=== PATIENT | male | born 1980 | race Caucasian/White ===

== ENCOUNTER 2020-07-18 06:54 | Emergency (ER) | payer MEDICARE, OTHER ==
[~2020-07-18 06:54] MED LIST: BLACK CHERRY PO; CLONIDINE HCL0.1 M1 PO; LAMICTAL100 MG PO; LIPITOR20 MG PO; LOPRESSOR50 MG PO; NEURONTIN400 MG PO; NORVASC 5 MG TAB5 MG PO; ORAZINC220 MG PO; PROTONIX40 MG PO; SEROQUEL100 MG PO; VITAMIN D31000 UNI1 PO; ZANTAC150 MG PO; ZITHROMAX250 MG PO
[2020-07-18] MEDS ORDERED: COLCHICINE 0.60.6 MG PO (07:32)
[2020-07-18] MEDS ORDERED: COLCRYS0.6 MG PO (07:35)
== END 2020-07-18 08:04 | disposition home or self-care (01) ==
LOC: ER1 06:54
DX: M10.9 Gout, unspecified (principal); I10 Essential (primary) hypertension; K21.9 Gastro-esophageal reflux disease without esophagitis; F17.290 Nicotine dependence, other tobacco product, uncomplicated
CPT/HCPCS: 96372; 99283; J1885

== ENCOUNTER 2020-10-29 09:38 | Emergency (ER) | payer MEDICARE, OTHER ==
[~2020-10-29 09:38] MED LIST changes: +COLCHICINE 0.60.6 MG PO; +COLCRYS0.6 MG PO
[2020-10-29 11:18] LABS: HEMOGLOBIN 13.3 gm/dl (14.0-17.5); WHITE BLOOD COUNT 12.3 K/UL (4.5-11.0)
[2020-10-29 11:41] LABS: BUN/CREATININE RATIO 18 (0-10)
[2020-10-29] MEDS ORDERED: AZITHROMYCIN250 MG PO (14:16)
[2020-10-29] MEDS ORDERED: OMNICEF 300 MG300 MG PO (14:16)
[2020-10-29] MEDS ORDERED: VENTOLIN HFA 66.7 GM INH (14:19)
== END 2020-10-29 15:53 | disposition home or self-care (01) ==
LOC: ER1 09:38
PROVIDERS: Emergency Medicine
DX: J18.9 Pneumonia, unspecified organism (principal); R10.9 Unspecified abdominal pain; R04.2 Hemoptysis; I10 Essential (primary) hypertension; F17.200 Nicotine dependence, unspecified, uncomplicated; Z20.822 Contact with and (suspected) exposure to COVID-19
CPT/HCPCS: 0240U; 80053; 81001; 82550; 82553; 83605; 83690; 83874; 84484; 85025; 85610; 85730; 87040; 93005; 96374; 99284; J0696; J7030; Q9967

== ENCOUNTER 2021-08-16 09:04 | Emergency (ER) | payer MEDICARE, OTHER ==
[~2021-08-16 09:04] MED LIST changes: +AZITHROMYCIN250 MG PO; +OMNICEF 300 MG300 MG PO; +VENTOLIN HFA 66.7 GM INH
[2021-08-16 09:49] LABS: HEMOGLOBIN 12.8 gm/dl (14.0-17.5); RED BLOOD COUNT 4.58 M/UL (4.20-5.50); WHITE BLOOD COUNT 12.1 K/UL (4.5-11.0)
[2021-08-16 10:01] LABS: BUN/CREATININE RATIO 15 (0-10)
== END 2021-08-16 14:10 | disposition home or self-care (01) ==
LOC: ER1 09:04
PROVIDERS: Emergency Medicine
DX: R07.9 Chest pain, unspecified (principal); I10 Essential (primary) hypertension; K21.9 Gastro-esophageal reflux disease without esophagitis
CPT/HCPCS: 71045; 80048; 82550; 82553; 84484; 85025; 93005; 99285

== ENCOUNTER 2021-08-23 12:32 | Emergency (ER) | payer MEDICARE, OTHER ==
[2021-08-23 13:34] LABS: HEMOGLOBIN 14.2 gm/dl (14.0-17.5); WHITE BLOOD COUNT 9.2 K/UL (4.5-11.0)
[2021-08-23 13:58] LABS: BUN/CREATININE RATIO 20 (0-10)
[2021-08-23 16:24] LABS: ADENOVIRUS F 40/41 Not Detected (Negative); ASTROVIRUS Not Detected (Negative); CAMPYLOBACTER Not Detected (Negative); CRYPTOSPORIDIUM Not Detected (Negative); E.COLI 0157 Not Detected (Negative); ENTAMOEBA HISTOLYTICA Not Detected (Negative); ENTEROAGGREGATIVE E.COLI (EAEC Not Detected (Negative); ENTEROPATHOGENIC E.COLI (EPEC) Not Detected (Negative); ENTEROTOXIGENIC E.COLI (ETEC) Not Detected (Negative); GIARDIA LAMBLIA Not Detected (Negative); NOROVIRUS GI/GII Not Detected (Negative); PLESIOMONAS SHIGELLOIDES Not Detected (Negative); SALMONELLA Not Detected (Negative); SAPOVIRUS Not Detected (Negative); SHIG/ENTEROINVAS.ECOLI (EIEC) Not Detected (Negative); SHIGA-LIK TOX.PRO.E.COLI (STEC Not Detected (Negative); VIBRIO Not Detected (Negative); VIBRIO CHOLERAE Not Detected (Negative); YERSINIA ENTEROCOLITICA Not Detected (Negative)
[2021-08-23 18:38] LABS: CLOSTRIDIUM DIFFICILE TOX A/B Not Detected (Negative); ROTOVIRUS A DETECTED (Negative)
== END 2021-08-24 12:15 ==
LOC: ER1 12:32
PROVIDERS: Physician Assistant
DX: R45.851 Suicidal ideations (principal); I10 Essential (primary) hypertension; Z20.822 Contact with and (suspected) exposure to COVID-19; K21.9 Gastro-esophageal reflux disease without esophagitis; F31.9 Bipolar disorder, unspecified; F17.290 Nicotine dependence, other tobacco product, uncomplicated; B97.89 Other viral agents as the cause of diseases classified elsewhere
CPT/HCPCS: 80053; 81001; 85025; 87507; 96365; 96375; 96376; 99285; J2405; J2550; J7030; Q9967; U0002